=== PATIENT | male | born 1995 | race Hispanic/Latino ===

== ENCOUNTER 2018-04-04 22:33 | Emergency (ER) | payer BC ==
[2018-04-04] MEDS ORDERED: FAMOTIDINE 20MG TAB 20 MG TAB ONE (22:55)
[2018-04-04] MEDS ORDERED: PREDNISONE 20 MG TABLET ONE (22:55)
== END 2018-04-04 23:53 | disposition home or self-care (01) ==
LOC: EDH 22:33
DX: T63.441A Toxic effect of venom of bees, accidental (unintentional), initial encounter (principal); L25.8 Unspecified contact dermatitis due to other agents; Y92.89 Other specified places as the place of occurrence of the external cause

== ENCOUNTER 2019-11-07 09:32 | Emergency (ER) | payer BC ==
[2019-11-07] MEDS ORDERED: IBUPROFEN 800 MG TAB ONE (09:43)
[2019-11-07] MEDS ORDERED: IPRATROPIUM/ALBUTEROL SULFATE 3 ML SOLUTION IH ONE (09:58)
[2019-11-07] MEDS ORDERED: BENZONATATE 100 MG CAPSULE PO ONE (10:05)
== END 2019-11-07 11:06 | disposition home or self-care (01) ==
LOC: EDH 09:32
DX: J10.1 Influenza due to other identified influenza virus with other respiratory manifestations (principal)
CPT/HCPCS: 87804; 87880; 94640